=== PATIENT | male | born 1970 | race Caucasian/White ===

== ENCOUNTER → 2023-10-24 | Outpatient (CLI) | payer BC ==
--- NOTE | 2023-10-24 20:39 | CT ---
EXAMINATION TYPE: CT knee RT wo con DATE OF EXAM: 10/24/2023 COMPARISON: None HISTORY: pain in right knee, sx 11/01/2023 CT DLP: [id number] mGycm Automated exposure control for dose reduction was used. FINDINGS: There are multiple subchondral cysts in the intercondylar region of the tibial plateau. There are 2 small focal sclerotic density in the femoral condyle in a subchondral location. There is moderate joint space narrowing and hypertrophic spurring of the medial compartment and mild patellofemoral spurring the lateral compartment with mild to moderate osteoarthritis. The patellofemo ral compartment is well maintained. There is no joint effusion. There is no fracture. There is a small calcific density in the soft tissues posterior to the joint space. IMPRESSION: 1. No acute fracture. 2. Degenerative changes as described above. IMPRESSION:
== END | disposition home or self-care (01) ==
LOC: RADCTMAIN 15:55
PROVIDERS: ATTEND Orthopaedic Surgery
DX: M17.11 Unilateral primary osteoarthritis, right knee (principal); M25.861 Other specified joint disorders, right knee